=== PATIENT | female | born 1930 | race Caucasian/White ===

== ENCOUNTER → 2016-06-25 | Outpatient (CLI) | payer OTHER | LOC: BRMIMAGING 12:43 | PROVIDERS: ATTEND Family Medicine | DX: J40 Bronchitis, not specified as acute or chronic (principal); I70.0 Atherosclerosis of aorta; J98.4 Other disorders of lung | CPT/HCPCS: 71020-PO ==

== ENCOUNTER → 2016-10-01 | Outpatient (CLI) | payer OTHER | LOC: BRMIMAGING 11:00 | PROVIDERS: ATTEND Family Medicine | DX: M81.0 Age-related osteoporosis without current pathological fracture (principal) ==

== ENCOUNTER → 2017-12-16 | Outpatient (CLI) | payer OTHER | LOC: BRMIMAGING 08:29 | PROVIDERS: ATTEND Hospitalist | DX: Z13.820 Encounter for screening for osteoporosis (principal); M81.0 Age-related osteoporosis without current pathological fracture ==